=== PATIENT | female | born 1980 | race Two or more races ===

== ENCOUNTER 2016-12-19 23:54 | Emergency (ER) | payer MEDICAID ==
[~2016-12-19] VITALS: Ht 162.6 cm; Wt 108.9 kg
[2016-12-20 00:16] VITALS: BP 153/102
[2016-12-20 01:14] LABS: Basophils # (auto) 0.1 uL; Basophils % (auto) 0.9 % (0.0-2.0); Eosinophils # (auto) 0 uL; Eosinophils % (auto) 0.4 % (0.0-7.0); Hematocrit 42.2 % (36.0-46.0); Hemoglobin 14.1 g/dL (12.2-16.2); Lymphocytes # (auto) 1.9 uL; Lymphocytes % (auto) 16.8 % (10.0-50.0); Mean Corpuscular Hemoglobin 30.9 pg (28.0-32.0); Mean Corpuscular Hgb Conc. 33.4 g/dL (32.0-36.0); Mean Corpuscular Volume 92.6 fL (80.0-100.0); Mean Platelet Volume 8.7 fL (7.4-10.4); Monocytes # (auto) 0.3 uL; Monocytes % (auto) 3.1 % (0.0-12.0); Neutrophils # (auto) 8.9 uL; Neutrophils % (auto) 78.8 % (37.0-80.0); Platelet Count (auto) 369 10^3/uL (140-450); Red Cell Distribution Width 12.6 % (11.6-16.0); White Blood Cell 11.2 10^3/uL (4.4-10.8)
[2016-12-20 01:16] LABS: INR 0.98 (0.9-1.15); Partial Thromboplastin Time 27.4 sec (22.64-33.71); Prothrombin Time 10.7 sec (9.37-12.3)
[2016-12-20 01:27] LABS: Albumin 4.3 g/dL (3.4-5.0); BUN/Creatinine Ratio 12.2; Calcium 8.7 mg/dL (8.5-10.1); Potassium 3.1 mmol/L (3.5-5.1)
[2016-12-20 01:29] LABS: Bilirubin, Total 0.6 mg/dL (0.2-1.0)
[2016-12-20 01:40] LABS: Urine Bilirubin Negative (Negative); Urine Color Yellow (Yellow); Urine Glucose Normal (Normal); Urine Mucus MODERATE (None Seen); Urine Nitrite Negative (Negative); Urine RBC 29 /hpf (0 - 4); Urine Squamous Epithelial Cell MANY /hpf (<5); Urine Urobilinogen Normal (Negative); Urine pH 5.5 (5.0-8.0)
[2016-12-20 01:42] LABS: Urine Blood 3+ /uL (Negative); Urine Ketone 1+ (Negative)
== END 2016-12-20 05:33 | disposition left against medical advice (07) ==
LOC: ER 12-20 00:01
DX: R19.7 Diarrhea, unspecified (principal); Z53.21 Procedure and treatment not carried out due to patient leaving prior to being seen by health care provider
CPT/HCPCS: 36415; 80053; 81001; 81025; 85025; 85610; 85730